=== PATIENT | female | born 1970 | race Caucasian/White ===

== ENCOUNTER 2020-04-29 12:34 | Day surgery (SDC) | payer BC ==
[2020-04-29 12:53] VITALS: BP 135/77
[2020-04-29] MEDS ORDERED: fentaNYL/PF 50MCG/1 ML 2ML syringe ONE ×2 (14:17→14:30)
[2020-04-29] MEDS ORDERED: midazolam 2 mg/2 ml injection ONE ×2 (14:17→14:30)
[2020-04-29] MEDS ORDERED: PER5325T PO (14:47)
[2020-04-29 15:07] VITALS: BP 103/65
[2020-04-29 15:22] VITALS: BP 117/69
[2020-04-29 15:37] VITALS: BP 126/79
[2020-04-29 15:52] VITALS: BP 108/70
== END 2020-04-29 16:00 | disposition home or self-care (01) ==
LOC: SSTAY O 12:34 → EEVIPCON 14:00 → SSTAY O 16:00
PROVIDERS: ATTEND Radiology Diagnostic Radiology
DX: T81.89XA Other complications of procedures, not elsewhere classified, initial encounter (principal); N64.89 Other specified disorders of breast; Y83.8 Other surgical procedures as the cause of abnormal reaction of the patient, or of later complication, without mention of misadventure at the time of the procedure; Y92.89 Other specified places as the place of occurrence of the external cause
CPT/HCPCS: 10160; 76942; 87070; 99152; 99153; C1729; J2250; J3010; 75989

== ENCOUNTER 2021-06-24 11:12 | Emergency (ER) | payer BC ==
[~2021-06-24] VITALS: Ht 170.2 cm; Wt 63.6 kg
[~2021-06-24 11:12] MED LIST: PER5325T PO
[2021-06-24] MEDS ORDERED: ondansetron/PF 4mg/2ml inj IV ONE ×2 (11:15→11:40)
[2021-06-24] MEDS ORDERED: hydrALAZINE 20mg/ml inj. IV ONE (11:15)
[2021-06-24] MEDS ORDERED: proCHLORperazine 10 MG/2 ml inj IV ONE (11:25)
[2021-06-24] MEDS ORDERED: fentaNYL/PF 50MCG/1 ML 2ML syringe IV ONE (11:45)
[2021-06-24 11:57] VITALS: BP 139/92
[2021-06-24] MEDS ORDERED: diphenhydrAMINE 50 mg/ml inj IV ONE (12:00)
[2021-06-24] MEDS ORDERED: haloperidol lactate 5mg/ml inj IM ONE (12:00)
[2021-06-24] MEDS ORDERED: ketorolac trometh. 30mg/ml inj. IV ONE (12:15)
[2021-06-24] MEDS ORDERED: normal saline 1000ml 1,000 ML IV ONE (12:15)
[2021-06-24] MEDS ORDERED: SUMAtriptan succ. 6 MG/0.5ml vial SQ ONE (12:15)
== END 2021-06-25 08:08 | disposition home or self-care (01) ==
LOC: ER 11:13
DX: G43.909 Migraine, unspecified, not intractable, without status migrainosus (principal); G89.29 Other chronic pain; M54.9 Dorsalgia, unspecified; Z88.1 Allergy status to other antibiotic agents; Z88.8 Allergy status to other drugs, medicaments and biological substances
CPT/HCPCS: 70450; 96361; 96372; 96374; 96375; 99285; J0360; J0780; J1200; J1885; J2405; J3010; J7030; J3030

== ENCOUNTER 2024-09-23 10:35 | Outpatient (CLI) | payer BC, SELFPAY ==
[~2024-09-23 10:35] MED LIST changes: +DEXA6TAB6 PO; +NIRM1TAB PO
== END 2024-09-23 23:59 | disposition home or self-care (01) ==
LOC: VAS 10:35
PROVIDERS: ATTEND Radiology Diagnostic Radiology
DX: Z13.9 Encounter for screening, unspecified (principal)